=== PATIENT | male | born 1980 | race African-American/Black ===

== ENCOUNTER 2018-02-02 08:46 | Emergency (ER) | payer SELFPAY ==
[2018-02-02] MEDS ORDERED: IBUPROFEN 800 MG TABLET PO ONE (09:23)
--- NOTE | 2018-02-02 09:28 | ER Document Report ---
HPI - HPI Patient complains to provider of: Cough and congestion Pain Level: 4 Context: Patient has had a cough and congestion for the last 3 days. Patient says T-max 100.0 F patient also complains of intermittent headache. Patient denies nausea , vomiting, diarrhea, shortness of breath, chest pain, abdominal pain. Past medical history: None Medications: Tylenol and [id number] cold medication Allergies: None Patient states he stopped smoking cigarettes 1 month ago, partakes in occasional EtOH use, denies illicit drug use. Past Medical History - General Information source: Patient - Social History Smoking Status: Former Smoker Lives with: Family Family History: Reviewed & Not Pertinent Vertical Provider Document - CONSTITUTIONAL Agree With Documented VS: Yes Notes: GENERAL: Alert, interacts well. No acute distress. HEAD: Normocephalic, atraumatic. Generalized headache, no frontal or maxillary sinus tenderness EYES: Pupils equal, round, and reactive to light. Extraocular movements intact. ENT: Oral mucosa moist, tongue midline. Nares patent, swollen turbinates bilaterally, TM's intact nonerythematous nonbulging pharynx within normal limits , nonerythematous no palatal petechiae noted NECK: Full range of motion. Supple. Trachea midline. No lymphadenopathy appreciated no nuchal rigidity. LUNGS: Clear to auscultation bilaterally, no wheezes, rales, or rhonchi. No respiratory distress. HEART: Regular rate and rhythm. No murmur ABDOMEN: Soft, non-tender. Non-distended. Bowel sounds present in all 4 quadrants. EXTREMITIES: Moves all 4 extremities spontaneously. No edema, normal radial and dorsalis pedis pulses bilaterally. No cyanosis. BACK: no cervical, thoracic, lumbar midline tenderness. No saddle anesthesia, normal distal neurovascular exam. NEUROLOGICAL: Alert and oriented x3. Normal speech. cranial nerves II through XII grossly intact PSYCH: Normal affect, normal mood. SKIN: Warm, dry, normal turgor. No rashes or lesions noted. - INFECTION CONTROL TRAVEL OUTSIDE OF THE [place] IN LAST 30 DAYS: No Course - Re-evaluation Re-evalutation: 02/02/18 09:26 Discussed with the patient upper respiratory infection diagnosis. Over-the- counter treatments. Follow-up with primary care provider. Return precautions discussed - Vital Signs Vital signs: Temp Pulse Resp BP Pulse Ox 98.9 F 82 16 114/74 98 11/10/18 08:51 02/02/18 08:51 02/02/18 08:51 02/02/18 08:51 02/02/18 08:51 Discharge - Discharge Clinical Impression: Upper respiratory infection Qualifiers: URI type: unspecified viral URI Qualified Code(s): J06.9 - Acute upper respiratory infection, unspecified Condition: Stable Disposition: HOME, SELF-CARE Instructions: Upper Respiratory Illness ([facility]), Viral Syndrome ([facility]) Additional Instructions: You have been seen and treated in the emergency room for an upper respiratory infection. Unfortunately these are caused by viruses so they do not respond to antibiotics. Antibiotics are not warranted at this time. Please take prescription medications as prescribed and also take [id number] cold medication. You should pick a medication that has Sudafed in it to help dry out your sinuses. Please drink plenty of fluids and get plenty of rest. Make an appointment with your primary care provider in the next 24-48 hours. Please return to the emergency room for any other concerning symptoms. Prescriptions: Benzonatate [Tessalon Perles 100 mg Capsule] 100 mg PO Q8HP PRN #40 capsule PRN Reason: Mometasone Furoate [Nasonex] 2 spray NS Q12 #1 spray.pump Pseudoephedrine HCl [Sudafed 12 Hour] 120 mg PO BID #14 tablet.er
[2018-02-02 09:56] VITALS: BP 112/72
== END 2018-02-02 09:54 | disposition home or self-care (01) ==
LOC: ER 08:46
DX: J06.9 Acute upper respiratory infection, unspecified (principal); R68.89 Other general symptoms and signs; R51 Headache
CPT/HCPCS: 99283